=== PATIENT | male | born 2000 | race Hispanic/Latino ===

== ENCOUNTER 2019-05-17 22:07 | Emergency (ER) | payer BC, OTHER ==
--- NOTE | 2019-05-17 22:34 | Event Note ---
ED Screening Note Date of service: 05/17/19 Time: 22:29 ED Screening Note: 18 y old male presents to Ed cc of nausea x 1 week vomitting x today 3 episode cc of left flank pain Has appt at 10 am for endoscopy and colonoscopy Call Dr Moore [phone] - [place] at [facility] This initial assessment/diagnostic orders/clinical plan/treatment(s) is/are subject to change based on patients health status, clinical progression and re- assessment by fellow clinical providers in the ED. Further treatment and workup at subsequent clinical providers discretion. Patient/guardian urged not to elope from the ED as their condition may be serious if not clinically assessed and managed. Initial orders include: labs,UA ct adomen pelvis
[2019-05-17 23:04] LABS: Basophils # (Auto) 0.1 K/mm3 (0.0-0.1); Basophils % (Auto) 0.4 % (0.0-1.8); Eosinophils # (Auto) 0.1 K/mm3 (0.0-0.4); Eosinophils % (Auto) 0.6 % (0.0-4.3); Hematocrit 44.8 % (35.5-45.6); Hemoglobin 15.9 gm/dl (11.8-15.2); Lymphocytes # (Auto) 1.2 K/mm3 (1.2-5.4); Lymphocytes % (Auto) 8.4 % (13.4-35.0); Mean Corpuscular HGB Conc 35 % (32-34); Mean Corpuscular Volume 88 fl (84-94); Monocytes # (Auto) 0.5 K/mm3 (0.0-0.8); Monocytes % (Auto) 3.6 % (0.0-7.3); Platelet Count 300 K/mm3 (140-440); Red Blood Count 5.09 M/mm3 (3.65-5.03); Red Cell Distribution Width 12.5 % (13.2-15.2)
[2019-05-17 23:18] LABS: Alanine Aminotransferase 10 units/L (7-56); Albumin 4.7 g/dL (3.9-5); BUN/Creatinine Ratio 11; Blood Urea Nitrogen 12 mg/dL (9-20); Calcium 9.7 mg/dL (8.4-10.2); Hemolysis Index 9
[2019-05-17] MEDS ORDERED: REGLAN IV ONE (23:19)
[2019-05-17] MEDS ORDERED: NACL 0.9% 1000 ML 1,000 ML IV ONE ×2 (23:19→23:20)
[2019-05-17] MEDS ORDERED: CARAFATE PO ONE (23:19)
[2019-05-17] MEDS ORDERED: PEPCID IV ONE (23:19)
--- NOTE | 2019-05-17 23:21 | Emergency Department Report ---
ED General Adult HPI - General Chief complaint: Nausea/Vomiting/Diarrhea Stated complaint: NV,FEVER, LIGHT HEADED Time Seen by Provider: 05/17/19 22:28 Source: patient, family, RN notes reviewed, old records reviewed Mode of arrival: Ambulatory Limitations: No Limitations - History of Present Illness Initial comments: Gastroenterology: Dr. Moore This is a 18-year-old gentleman. The patient is not known to this provider previously. History obtained from patient and from his mother. Apparently, the patient had a colonoscopy at [place] [id number], which was equivocal for possible Crohn's disease. The patient does not take any immune modulating medication. He is sent to the ER by his matzo forming machine operator. He complains of 10 days of left flank/left upper quadrant cramping. Describes intermittent nausea and vomiting. Today, he reports retching 3, but he vomiting times one. One episode of emesis was green, one was blue, and one was red. There is no diarrhea. He did not throughout the day before. He also describes fevers. He may have had a fever of 102 a few days ago. He is not currently febrile now. He also describes lightheadedness. It is intermittent. It is painless. He has not lost consciousness. He denies DVT, pulmonary embolus or risk factors. He denies urinary symptoms, and he denies bright red blood per rectum. He was prescribed Pepcid and Zofran by his matzo forming machine operator. Patient does appear to be quite anxious. His symptoms are intermittent, does not radiate anywhere, and are occasional worsened with eating, and occasionally did not have exacerbating oral infections. He is scheduled for upper endoscopy tomorrow, and a possible colonoscopy. -: Gradual Quality: aching Consistency: intermittent Improves with: other Worsens with: other - Related Data Home Medications Medication Instructions Recorded Confirmed Last Taken Bentyl 1 tab PO DAILY 05/17/19 05/17/19 Unknown Zofran TAB 4 mg PO PRN PRN 05/17/19 05/17/19 Unknown Allergies Allergy/AdvReac Type Severity Reaction Status Date / Time No Known Allergies Allergy Verified 05/17/19 14:03 ED Review of Systems ROS: Stated complaint: NV,FEVER, LIGHT HEADED Other details as noted in HPI Constitutional: fever Eyes: denies: eye discharge ENT: denies: epistaxis Respiratory: denies: cough Cardiovascular: denies: chest pain Gastrointestinal: abdominal pain, nausea, vomiting. denies: diarrhea, constipation, melena, hematochezia Genitourinary: denies: testicular pain Musculoskeletal: denies: arthralgia Skin: denies: lesions Neurological: weakness Psychiatric: anxiety Hematological/Lymphatic: denies: easy bleeding ED Past Medical Hx - Past Medical History Previous Medical History?: Yes Additional medical history: chron's, 1 kidney - Surgical History Past Surgical History?: Yes Additional Surgical History: right arm - Social History Smoking Status: Never Smoker Substance Use Type: None - Medications Home Medications: Home Medications Medication Instructions Recorded Confirmed Last Taken Type Bentyl 1 tab PO DAILY 05/17/19 05/17/19 Unknown History Zofran TAB 4 mg PO PRN PRN 05/17/19 05/17/19 Unknown History ED Physical Exam - General Limitations: No Limitations General appearance: alert, anxious - Head Head exam: Present: atraumatic, normocephalic - Eye Eye exam: Present: normal appearance, EOMI, other (visual acuity intact to finger counting, color perception, reading at a close distance). Absent: nystagmus - ENT ENT exam: Present: normal exam, normal orophraynx, mucous membranes moist, normal external ear exam - Neck Neck exam: Present: normal inspection, full ROM. Absent: tenderness, meningismus - Respiratory Respiratory exam: Present: normal lung sounds bilaterally. Absent: respiratory distress - Cardiovascular Cardiovascular Exam: Present: normal rhythm, tachycardia, normal heart sounds. Absent: bradycardia, systolic murmur, diastolic murmur, rubs, gallop - GI/Abdominal GI/Abdominal exam: Present: soft. Absent: distended, tenderness, guarding, rebound, rigid, pulsatile mass - Rectal Rectal exam: Present: deferred - Extremities Exam Extremities exam: Present: normal inspection, full ROM, other (2+ pulses noted in the bilateral upper, lower extremities. Compartments soft. No long bony tenderness. The pelvis is stable.). Absent: pedal edema, joint swelling, calf tenderness - Back Exam Back exam: Present: normal inspection, full ROM. Absent: tenderness, CVA tenderness (R), CVA tenderness (L), paraspinal tenderness, vertebral tenderness - Neurological Exam Neurological exam: Present: alert (there is no pass pointing. There is normal exbn-xu-iell. There is no pronator drift.), other (Extraocular movements intact. Tongue midline. No facial droop. Facial sensation intact to light touch in the V1, V2, V3 distribution bilaterally. 5 and 5 strength in 4 extremities.. Sensation is intact to light touch in 4 extremities.). Absent: motor sensory deficit - Psychiatric Psychiatric exam: Present: anxious - Skin Skin exam: Present: warm, dry, intact, normal color. Absent: rash ED Course Vital Signs 05/17/19 05/17/19 22:29 23:46 Temperature 98.1 F Pulse Rate 119 H 105 H Respiratory 18 18 Rate Blood Pressure 131/78 Blood Pressure 111/65 [Left] O2 Sat by Pulse 99 99 Oximetry - Reevaluation(s) Reevaluation #1: 05/17/19 23:57 Differential diagnosis, including not limited to: GERD, gastritis, hiatal hernia, IBS, inflammatory bowel disease, anxiety Assessment and plan: 18-year-old gentleman, resolved tachycardia, benign physical examination, not hypoxic, not tachypnea, no pulmonary embolus or DVT risk factors, low risk by well's criteria, with no documented fever. His physical exam is benign. There is no abdominal tenderness, rebound or guarding. Extensive discussion had with patient and family. Advised patient that I did not think that he had a significant intra-abdominal process that will require a CT scan of the abdomen and pelvis. In gaze patient and family in chair decision-making. Patient does not want to have a CAT scan out of concern for radiation, and I agree with him. I have contacted his private matzo forming machine operator, Dr. Moore, as a courtesy, and discussed the patient's laboratory findings and physical exam findings. His matzo forming machine operator is amenable to seeing him in the morning for upper endoscopy. Discussed this with the patient who verbalizes understanding. We will treat his symptoms, and discharged once remainder of laboratory studies have resulted. The patient is clinically sober at this time, with a GCS of 15. Reevaluation #2: 05/18/19 00:43 Patient sleeping comfortably in stretcher. He is in no acute distress. No active vomiting. He will see his matzo forming machine operator later on today. Reviewed discharge instructions with family, who verbalized understanding. ED Medical Decision Making - Lab Data Result diagrams: 05/17/19 22:46 05/17/19 22:46 Vital Signs 05/17/19 05/17/19 22:29 23:46 Temperature 98.1 F Pulse Rate 119 H 105 H Respiratory 18 18 Rate Blood Pressure 131/78 Blood Pressure 111/65 [Left] O2 Sat by Pulse 99 99 Oximetry Resting heart rate currently 95 bpm. Lab Results 05/17/19 05/17/19 05/17/19 Range/Units 22:46 22:46 23:38 WBC 13.9 H (4.5-11.0) K/mm3 RBC 5.09 H (3.65-5.03) M/mm3 Hgb 15.9 H (11.8-15.2) gm/dl Hct 44.8 (35.5-45.6) % MCV 88 (84-94) fl MCH 31 (28-32) pg MCHC 35 H (32-34) % RDW 12.5 L (13.2-15.2) % Plt Count 300 (140-440) K/mm3 Lymph % (Auto) 8.4 L (13.4-35.0) % [place] % (Auto) 3.6 (0.0-7.3) % Eos % (Auto) 0.6 (0.0-4.3) % Baso % (Auto) 0.4 (0.0-1.8) % Lymph # 1.2 (1.2-5.4) K/mm3 [place] # 0.5 (0.0-0.8) K/mm3 Eos # 0.1 (0.0-0.4) K/mm3 Baso # 0.1 (0.0-0.1) K/mm3 Seg Neutrophils % 87.0 H (40.0-70.0) % Seg Neutrophils # 12.1 H (1.8-7.7) K/mm3 Sodium 142 (137-145) mmol/L Potassium 3.5 L (3.6-5.0) mmol/L Chloride 100.2 (98-107) mmol/L Carbon Dioxide 27 (22-30) mmol/L Anion Gap 18 mmol/L BUN 12 (9-20) mg/dL Creatinine 1.1 (0.8-1.5) mg/dL Estimated GFR > 60 ml/min BUN/Creatinine Ratio 11 % Glucose 112 H (75-100) mg/dL Calcium 9.7 (8.4-10.2) mg/dL Magnesium 2.40 H (1.7-2.3) mg/dL Total Bilirubin 2.10 H (0.1-1.2) mg/dL AST 23 (5-40) units/L ALT 10 (7-56) units/L Alkaline Phosphatase 72 (35-129) units/L Total Creatine Kinase 77 (55-170) units/L Total Protein 7.6 (6.3-8.2) g/dL Albumin 4.7 (3.9-5) g/dL Albumin/Globulin Ratio 1.6 % Amylase 83 (27-131) units/L Lipase 9 L (13-60) units/L - EKG Data -: EKG Interpreted by Me EKG shows normal: sinus rhythm Rate: normal - EKG Data When compared to previous EKG there are: previous EKG unavailable 05/17/19 23:59 This is a normal sinus rhythm, 95 bpm, normal intervals, normal axis, not having chest pain, the EKG is not consistent with ST elevation myocardial infarction. Critical care attestation.: If time is entered above; I have spent that time in minutes in the direct care of this critically ill patient, excluding procedure time. ED Disposition Clinical Impression: History of nausea and vomiting, History of abdominal pain Disposition: DC-01 TO HOME OR SELFCARE Is pt being admited?: No Does the pt Need Aspirin: No Condition: Good Additional Instructions: Do not eat anything after midnight 05/18/2019. Continue current outpatient medications. Follow up today as scheduled with your matzo forming machine operator. Please return to the ER right away with new, worsening or different symptoms not present on the initial emergency room evaluation. Referrals: RAINER COLLIER MD [Staff Physician] - 3-5 Days
[2019-05-18 00:18] LABS: Amorphous Crystals,Urine 1+; Bilirubin,Urine NEG (Negative); Blood,Urine NEG (Negative); Color,Urine Yellow (Yellow); Mucus,Urine FEW /HPF; Protein,Urine <15 mg/dL mg/dL (Negative); Urobilinogen,Urine < 2.0 mg/dL (<2.0)
[2019-05-18 00:22] LABS: WBC,Urine < 1.0 /HPF (0.0-6.0)
[2019-05-18 00:32] LABS: Amphetamine Screen,Urine PRESUMPTIVE NEGATIVE; Benzodiazepines Screen,Urine PRESUMPTIVE NEGATIVE; Cannabinoid Screen,Urine PRESUMPTIVE NEGATIVE; Cocaine Screen,Urine PRESUMPTIVE NEGATIVE; Methadone Screen,Urine PRESUMPTIVE NEGATIVE; Opiate Screen,Urine PRESUMPTIVE NEGATIVE
[2019-05-18 01:17] VITALS: BP 112/74
== END 2019-05-18 01:15 | disposition home or self-care (01) ==
LOC: ED 22:07
DX: R10.12 Left upper quadrant pain (principal); R11.2 Nausea with vomiting, unspecified; R19.7 Diarrhea, unspecified; K50.90 Crohn's disease, unspecified, without complications; Z79.899 Other long term (current) drug therapy
CPT/HCPCS: 36415; 80053; 80307; 81001; 82150; 82550; 83690; 83735; 85025; 93005; 93010; 96361; 96374; 96375; 99284; J2765; J7030

== ENCOUNTER 2019-05-18 10:35 | Day surgery (SDC) | payer BC, OTHER ==
[~2019-05-18 10:35] MED LIST: NACL 0.9% 1000 ML 1,000 ML IV SCH; WATER FOR IRRIG STERILE ONE
[2019-05-18] MEDS ORDERED: DIPRIVAN 10 MG/ML IV ONE ×2 (11:54→12:26)
--- NOTE | 2019-05-18 12:36 | Procedure Note ---
Date of procedure: 05/18/19 Pre-op diagnosis: Abdominal Pain/Nausea and vomiting Post-op diagnosis: other (R/O Celiac disease/ Judit-Jackson Tear/Mild to Moderate Distal erosive Esophagitis/Gastritis/Gastric Erosion/Patent Pylorus) Procedure: EGD with Biopsy Anesthesia: [facility] Surgeon: RAINER COLLIER Estimated blood loss: minimal Pathology: list Specimen disposition: to lab Condition: stable Disposition: same day (Treat with and anti-emetic and avoid aspirin and NSAID for 5 days and follow up in 1 to 2 weeks ([phone]).)
[2019-05-18] MEDS ORDERED: ZOFRAN ONE (13:04)
[2019-05-18] MEDS ORDERED: XYLOCAINE MPF 2% ONE (13:30)
[2019-05-18 13:33] VITALS: BP 112/69
--- NOTE | 2019-05-18 16:57 | Operative Report ---
PROCEDURE: Esophagogastroduodenoscopy with biopsy. INDICATIONS: This is a 18-year-old white male who has been having abdominal pain, nausea, vomiting, has a family history of Crohn's disease. He was to have a colonoscopy as well as an EGD done but I was unable to take the prep and had to come to the Emergency Room for possible dehydration. EGD was done to make sure there was not any significant upper GI pathology present. DESCRIPTION OF PROCEDURE: Procedure was done after getting informed consent with the MAC anesthesia. Instrument was passed through the hypopharynx into the esophagus, which did show a Judit-Jackson tear probably from his excessive nausea and vomiting and some [id number] distal erosive esophagitis. Biopsy was done from the distal esophagus. Stomach showed some antral erosion and gastritis. Biopsy was done from the gastric body, the angularis incisura, and the gastric antrum to rule out for H. pylori and atrophic gastritis. The pylorus is patent. The duodenum in the first and the second portion appeared normal. Biopsy was done from the second part to rule out for possible celiac disease. There was minimal bleeding associated with the procedure and no complications associated with the procedure. ASSESSMENT: Abdominal pain, nausea, vomiting, rule out celiac disease, Judit-Jackson tear, [id number] distal erosive esophagitis, gastritis, gastric erosion, patent pylorus. PLAN: To treat the patient with PPI, p.r.n. doses of Zofran. Have the patient to avoid aspirin and aspirin-related products for the next few days and follow up in the office in 1-2 weeks' time. If warranted, the patient may require a colonoscopy to be done at a later date. The procedure was done in the GI lab with the assistance of the GI lab team and anesthesia, the GI lab team included RN, Shirlene Velasco, as well as Aguilar arenas. JOB# [id number] TYREL/LUL
== END 2019-05-18 10:36 | disposition home or self-care (01) ==
LOC: GIO 10:35
DX: K22.10 Ulcer of esophagus without bleeding (principal); K29.70 Gastritis, unspecified, without bleeding; Z79.899 Other long term (current) drug therapy; Z87.898 Personal history of other specified conditions
CPT/HCPCS: 43239; 88305; 88312; 88342; J2405; J2704; J7030

== ENCOUNTER 2019-06-03 09:40 | Outpatient (CLI) | payer BC ==
[2019-06-03 10:07] LABS: Hematocrit 42.2 % (35.5-45.6); Hemoglobin 14.8 gm/dl (11.8-15.2); Mean Corpuscular HGB Conc 35 % (32-34); Mean Corpuscular Volume 90 fl (84-94); Platelet Count 310 K/mm3 (140-440); Red Blood Count 4.72 M/mm3 (3.65-5.03); Red Cell Distribution Width 12.4 % (13.2-15.2)
[2019-06-03 10:21] LABS: Albumin 4.6 g/dL (3.9-5); Bilirubin,Direct 0.2 mg/dL (0-0.2)
[2019-06-03 10:27] LABS: Alanine Aminotransferase < 5 units/L (7-56)
--- NOTE | 2019-06-03 14:25 | Ultrasound Report ---
ULTRASOUND ABDOMEN, LIMITED (RIGHT UPPER QUADRANT) INDICATION: ABDOMINAL PAIN W/ NAUSEA VOMITING COMPARISON: None available. LIMITATIONS: None FINDINGS: Pancreas: Visualized portion shows no significant abnormality. Liver: A small cyst is seen anteriorly in the right lobe of the liver measuring 15 mm. No other hepat ic focal lesions are seen. Slight patchy fatty infiltration is noted. I do not have a measurement of the right lobe. Gallbladder: Normal. Bile ducts: Normal. Common Bile Duct measures 3 mm. 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 In the left renal component and 19 mm simpl e cyst is seen. Right renal pelvis is slightly prominent which is of doubtful significance. No calyce al dilatation is seen to strongly suggest obstruction. Free fluid: None. Additional Findings: None. IMPRESSION: 1. Mild patchy fatty infiltration of the liver 2. Horseshoe kidney 3. No acute abnormalities are seen Signer Name: Arsen Lemus MD Signed: 06/03/2019 2:20 PM Workstation Name: [id number]
== END 2019-06-03 09:41 | disposition home or self-care (01) ==
LOC: US 09:40
DX: K76.0 Fatty (change of) liver, not elsewhere classified (principal); Q63.1 Lobulated, fused and horseshoe kidney
CPT/HCPCS: 36415; 76705; 80076; 85027